=== PATIENT | male | born 1975 | race Caucasian/White ===

== ENCOUNTER 2019-09-08 12:55 | Outpatient (CLI) | payer OTHER, SELFPAY ==
--- NOTE | 2019-09-10 18:32 | WPDPFTINT ---
PFT Interpretation PFT Interpretation: DOS: 09/08/2019 REQUESTING: Dee Dee Kerr NP REASON FOR TESTING: Cough PULMONARY FUNCTION TESTS Results are not reproducible. The patient was not able to perform the maneuver after 4 attempts to provide lung volumes. Spirometry: FEV1 is 85%, FVC is 84%, and FEV1% is 75%, all normal results. No bronchodilator was given. Lung volumes: not obtained; the patient was not able to perform maneuver to obtain data Diffusion: DLCO 103%, normal. Flow volume loop: First effort was normal. Subsequent loops showed flattening of the inspiratory loop consistent with dynamic extrathoracic obstruction. IMPRESSION: Normal spirometry and diffusion. No lung volumes could be obtained due to the patient not being able to perform the maneuver. The abnormal inspiratory limb suggests possible vocal cord dysfunction. Clinical correlation is advised. Maday Fulton MD
== END 2019-09-08 12:56 | disposition home or self-care (01) ==
PROVIDERS: PCP Nurse Practitioner Adult Health; Visit Provider Nurse Practitioner Adult Health
DX: R05 Cough (principal)
CPT/HCPCS: 94375; 94729

== ENCOUNTER 2021-06-02 10:13 | Outpatient (CLI) | payer OTHER, SELFPAY ==
--- NOTE | 2021-06-02 | EST_ITS ---
Patient Info Name: Rob Bunch Age: 46 years : 1975 Gender: Male Ht: 73 in Wt: 290 lbs BSA: 2.65 m2 Exam Date: 06/02/2021 11:12 AM Exam Location: [facility] Stress Patient Status: Outpatient Admit Date: 06/02/2021 Staff Ordering Physician: Yony Diaz MD Attending Provider: Yony Diaz MD Exercise Technologist: Efren Holland RDCS, RT Exercise Physician: Wood Rosa DO Exam Type: CA stress test treadmill Study Info A treadmill exercise stress test was performed. Summary 1. 1. Negative [place] exercise stress test for ischemic ST changes by ECG criteria. 2. 2. Reduced functional capacity, achieving 8.9 METs of workload. 3. 3. Appropriate HR response to exercise. 4. 4. Appropriate HR recovery at 1 minute post exercise. 5. 5. No imaging with stress testing. 6. 6. Patient informed of the above results. Protocol: [facility] Stress ECG Details Stage: REST Duration (min): 1 min : 15 sec Speed (mph): 0.0 Grade (%): 0 HR (bpm): 80 SBP (mmHg): 138 DBP (mmHg): 98 METS: --- Stage: REST Duration (min): 5 min : 8 sec Speed (mph): 0.0 Grade (%): 0 HR (bpm): 105 SBP (mmHg): 138 DBP (mmHg): 98 METS: --- Stage: STAGE 1 Duration (min): 1 min : 0 sec Speed (mph): 1.7 Grade (%): 10 HR (bpm): 124 SBP (mmHg): 138 DBP (mmHg): 98 METS: --- Stage: STAGE 1 Duration (min): 2 min : 0 sec Speed (mph): 1.7 Grade (%): 10 HR (bpm): 127 SBP (mmHg): 138 DBP (mmHg): 98 METS: --- Stage: STAGE 1 Duration (min): 3 min : 0 sec Speed (mph): 1.7 Grade (%): 10 HR (bpm): 133 SBP (mmHg): 173 DBP (mmHg): 105 METS: --- Stage: STAGE 2 Duration (min): 1 min : 0 sec Speed (mph): 2.5 Grade (%): 12 HR (bpm): 141 SBP (mmHg): 173 DBP (mmHg): 105 METS: --- Stage: STAGE 2 Duration (min): 2 min : 0 sec Speed (mph): 2.5 Grade (%): 12 HR (bpm): 151 SBP (mmHg): 188 DBP (mmHg): 62 METS: --- Stage: STAGE 2 Duration (min): 3 min : 0 sec Speed (mph): 2.5 Grade (%): 12 HR (bpm): 156 SBP (mmHg): 188 DBP (mmHg): 62 METS: --- Stage: STAGE 3 Duration (min): 1 min : 0 sec Speed (mph): 3.4 Grade (%): 14 HR (bpm): 163 SBP (mmHg): 180 DBP (mmHg): 78 METS: --- Stage: STAGE 3 Duration (min): 1 min : 0 sec Speed (mph): 3.4 Grade (%): 14 HR (bpm): 166 SBP (mmHg): 180 DBP (mmHg): 78 METS: --- Stage: RECOVERY Duration (min): 0 min : 59 sec Speed (mph): 0.0 Grade (%): 0 HR (bpm): 150 SBP (mmHg): 180 DBP (mmHg): 78 METS: --- Stage: RECOVERY Duration (min): 1 min : 59 sec Speed (mph): 0.0 Grade (%): 0 HR (bpm): 131 SBP (mmHg): 180 DBP (mmHg): 78 METS: --- Stage: RECOVERY Duration (min): 2 min : 59 sec Speed (mph): 0.0 Grade (%): 0 HR (bpm): 126 S
== END 2021-06-02 10:14 | disposition home or self-care (01) ==
PROVIDERS: PCP Emergency Medicine; Visit Provider Emergency Medicine
DX: R06.00 Dyspnea, unspecified (principal)
CPT/HCPCS: 93017

== ENCOUNTER 2023-05-07 00:13 | Day surgery (SDC) | payer OTHER, SELFPAY ==
[2023-02-26 14:01] VITALS: BMI 34.9
[2023-04-17 13:11] VITALS: BMI 34.3
--- NOTE | 2023-05-04 10:20 | SUR.PREOP ---
Patient called regarding upcoming procedure. Unable to leave voicemail.
[2023-05-07 11:49] VITALS: BP 135/96; PULSE 96; RESP 18; TEMP 36.2; O2SAT 98
[2023-05-07] MEDS: LACTATED RINGERS 1,000 ML 150 ML IV CONT (12:00)
--- NOTE | 2023-05-07 12:45 | P.PNAN_ITS ---
Anes - Initial Pre Proc Eval Procedure: Operation Date: 05/07/23 13:00 Proposed Procedures p Screening Colonoscopy - Ryan London MD Date/Time: 05/07/23 12:45 Surgeon: Ryan London MD Pre Op Diagnosis: screening neoplasm of colon Patient Data Age: 48 Gender: M Height: 1.85 m Weight: 125.5 kg Last Vital Signs Temp 97.1 F L 05/07/23 11:49 Pulse 96 05/07/23 11:49 Resp 18 05/07/23 11:49 BP 135/96 H 05/07/23 11:49 Pulse Ox 98 05/07/23 11:49 O2 Del Method Room Air 05/07/23 11:49 Allergies Allergy/AdvReac Type Severity Reaction Status Date / Time No Known Allergies Allergy Verified 05/07/23 11:48 Home Medications Medication Instructions Recorded Confirmed Type divalproex 500 mg tablet,extended 500 mg PO DAILY 02/26/23 04/17/23 History release 24 hr phentermine 37.5 mg tablet 37.5 mg PO DAILY 02/26/23 02/26/23 History Patient hx anesthesia problems: none Family hx anesthesia problems: none Results Review: All pre-operative results and documents have been reviewed as part of the pre- operative evaluation. [facility] Family History Family History (Updated 05/08/16 @ 08:12 by DOCTOR UNKNOWN) Other Diabetes mellitus Family history of malignant neoplasm Social History Social History Smoking status: Never smoker Alcohol intake: current Drinks per week: 5 Alcohol use details: Rarely Substance use: never Substance use type: does not use Living arrangements: other Additional living arrangements comments: with sp Spiritual care concerns: No Anes - Eval Final PreProcedure Day of Procedure 05/07/23 12:45 Patient weight: normal Heart: regular rate and rhythm Lungs: clear to auscultation Airway: Mallampati scale class II Neurological: alert and oriented Last oral intake: >/= 8 hours ASA classification: III Emergent: no Anesthetic plan: proceed Anesthesia type and monitoring: general GIVS and standard monitoring Results Review: All pre-operative results and documents have been reviewed as part of the pre- operative evaluation. Informed Consent: The patient's anesthetic plan and its attendant risks and benefits were discussed with the patient/family/POA. Questions were solicited and answers provided to the satisfaction of the patient/family/POA.
--- NOTE | 2023-05-07 12:50 | PM.HPGS ---
History of Present Illness History of Present Illness Consent: Risks, benefits, and alternatives have been discussed and questions answered. Patient agrees to proceed with procedure. Chief complaint: screening neoplasm of colon Narrative: Rob Bunch is a 48 year old male here for first screening colonoscopy Review of Systems Constitutional: Constitutional: Denies headache(s) and Denies weakness Eyes: Eyes: Denies blurry vision ENT: Reports Normal hearing present, Denies headache(s) and Denies neck pain Cardiovascular: Cardiovascular: Denies chest pain and Denies dyspnea Respiratory: Respiratory: Denies dyspnea Gastrointestinal: Gastrointestinal: Reports no additional gastrointestinal complaints Genitourinary: Genitourinary: Denies dysuria Musculoskeletal: Musculoskeletal: Denies neck pain Integumentary/Breasts: Skin/Breast: Denies dry skin Neurologic: Reports Normal hearing present, Denies headache(s) and Denies weakness Psychiatric: Psychiatric: Denies anxiety Endocrine: Endocrine: Denies change in body appearance Hematologic/Lymphatic: Hematologic/Lymphatic: Denies easy bleeding Allergic/Immunologic: Allergic/Immunologic: Denies urticaria [facility] Past Medical History Medical History (Updated 05/07/23 @ 12:50 by Ryan London MD) Colon cancer screening Family History Family History (Updated 05/08/16 @ 08:12 by DOCTOR UNKNOWN) Other Diabetes mellitus Family history of malignant neoplasm Social History Social History Smoking status: Never smoker Alcohol intake: current Drinks per week: 5 Alcohol use details: Rarely Substance use: never Substance use type: does not use Living arrangements: other Additional living arrangements comments: with sp Spiritual care concerns: No Meds Home Medications and Allergies Home Medications Medication Instructions Recorded Confirmed Type divalproex 500 mg tablet,extended 500 mg PO DAILY 02/26/23 04/17/23 History release 24 hr phentermine 37.5 mg tablet 37.5 mg PO DAILY 02/26/23 02/26/23 History Allergies Allergy/AdvReac Type Severity Reaction Status Date / Time No Known Allergies Allergy Verified 05/07/23 11:48 Vital Signs Vital Signs - 24 hr 05/07/23 11:49 Temperature 97.1 F L Pulse Rate 96 Respiratory Rate 18 Blood Pressure 135/96 H Pulse Oximetry 98 Oxygen Delivery Room Air Exam Const: General: comfortable and no acute distress HENMT: Face/Nose/Sinus: Normal nares present Eyes: General: appearance normal, both eyes and all related structures Neck: Neck: no JVD Resp: Auscultation: clear to auscultation bilaterally Cardio: Rate: regular rate Rhythm: regular rhythm GI: Inspection: non-distended GI Palp: Yes Soft to palpation Skin: General skin exam: normal color Neuro: General: gait normal Speech: normal speech Extrem: General: normal to inspection Psych: Mental Status: mental status grossly normal Assessment and Plan Assessment and plan (1) Colon cancer screening: Code(s): Z12.11 - Encounter for screening for malignant neoplasm of colon Status: Acute Assessment and Plan: colonoscopy
[2023-05-07 13:05] VITALS: BP 109/79; PULSE 85; RESP 18; O2SAT 94
[2023-05-07 13:15] VITALS: BP 110/77; PULSE 77; RESP 18; O2SAT 99
[2023-05-07 13:22] VITALS: BP 121/82; PULSE 68; RESP 18; O2SAT 98
== END 2023-05-07 13:34 | disposition home or self-care (01) ==
PROVIDERS: PCP Emergency Medicine; Visit Provider Internal Medicine Gastroenterology
PROC: 0DJD8ZZ Inspection of Lower Intestinal Tract, Via Natural or Artificial Opening Endoscopic (ICD-10-PCS; CPT 45378; principal; 2023-05-07 13:00)
DX: Z12.11 Encounter for screening for malignant neoplasm of colon (principal); D12.5 Benign neoplasm of sigmoid colon; K63.5 Polyp of colon; K64.8 Other hemorrhoids; K57.30 Diverticulosis of large intestine without perforation or abscess without bleeding; Z80.9 Family history of malignant neoplasm, unspecified
CPT/HCPCS: 45385; 88305; J2704; J7120